=== PATIENT | male | born 1965 | race Caucasian/White ===

== ENCOUNTER 2021-09-16 07:45 | Outpatient (REF) | payer BC, SELFPAY | END 2021-09-16 07:46 | disposition home or self-care (01) | LOC: HO.HOSX 07:45 | PROVIDERS: Visit Provider Orthopaedic Surgery | DX: M24.812 Other specific joint derangements of left shoulder, not elsewhere classified (principal); Z98.890 Other specified postprocedural states | CPT/HCPCS: 20610; J1100 ==